=== PATIENT | female | born 1995 | race Caucasian/White ===

== ENCOUNTER → 2019-03-28 | Outpatient (CLI) | payer BC, OTHER ==
[2019-03-28 11:02] LABS: HCG, SERUM QUANTITATIVE < 1.0 MIU/ML
[2019-03-28 11:09] LABS: ESTRADIOL 36.1 PG/ML
[2019-03-28 11:10] LABS: FOLLICLE STIMULATING HORMONE 5.9 mIU/mL
== END ==
LOC: M LAB 10:08
PROVIDERS: ATTEND Obstetrics & Gynecology Reproductive Endocrinology
DX: Z31.41 Encounter for fertility testing (principal)

== ENCOUNTER → 2019-03-29 | Outpatient (CLI) | payer BC, OTHER ==
--- NOTE | 2019-03-29 08:52 | REP ---
TRANSVAGINAL ULTRASOUND FOLLICLE STUDY: Real-time sonographic evaluation of the pelvis was performed utilizing transvaginal technique. The uterus measures 8.9 x 4.1 x 6.1 cm. Endometrial stripe measures 5 mm. No endometrial fluid collection was seen. Right ovary measures 3.4 x 2.0 x 1.7 cm. Multiple subcentimeter follicles are seen in the right ovary. Left ovary measures 3.2 x 2.0 x 1.8 cm. Multiple subcentimeter follicles are seen in the left ovary. No follicles are seen in either ovary that are greater than 1 cm in diameter. Electronically Signed by Mitchel Barraza MD 03/29/2019 09:24 A
== END ==
LOC: M RAD 07:06
PROVIDERS: ATTEND Obstetrics & Gynecology Reproductive Endocrinology
DX: Z31.41 Encounter for fertility testing (principal)

== ENCOUNTER → 2019-05-14 | Outpatient (CLI) | payer BC, OTHER ==
[2019-05-14 11:44] LABS: ESTRADIOL 312.7 PG/ML; PROGESTERONE 0.58 NG/ML
--- NOTE | 2019-05-14 12:31 | REP ---
REASON: Ovarian follicle study. Transvaginal pelvic ultrasound only. The uterus measures 9.4 x 2 x 6.5 cm. The parenchymal echo pattern is within normal limits. The endometrial echo complex measures 3 mm. The right ovary measures 4.2 x 1.8 x 2.7 cm. There are two follicles in the right ovary which measure over 1 cm, one measures 16 x 11.2 mm and the other 14.8 x 13.8 mm. There are multiple follicles seen in the 5-9 mm range. Left ovary measures 4.2 x 1.8 x 3.1 cm. There are two follicles in the left ovary which measure over a 1 centimeter, one measures 13.2 x 12.5 mm and the other 10.4 x 8.3 mm. Additionally, there are multiple follicles seen in the 3-7 mm range. Electronically Signed by Cayetano Rodriguez DO 05/14/2019 02:20 P
== END ==
LOC: M RAD 10:29
PROVIDERS: ATTEND Obstetrics & Gynecology Reproductive Endocrinology
DX: Z31.41 Encounter for fertility testing (principal)

== ENCOUNTER → 2019-05-18 | Outpatient (CLI) | payer BC, OTHER ==
--- NOTE | 2019-05-18 09:29 | REPVR ---
EXAM: US Pelvis, Transvaginal EXAM DATE/TIME: 05/18/2019 6:42 AM CLINICAL HISTORY: 23 years old, female; Condition or disease; Other: Infertility TECHNIQUE: Imaging protocol: Real-time transvaginal pelvic ultrasound with image documentation. Transvaginal imaging was used for better evaluation of the endometrium and adnexa. COMPARISON: Transvaginal NON- US 05/14/2019 10:57 AM FINDINGS: Uterus/cervix: Uterus measures 10.7 x 5 x 8 cm. Endometrial stripe is 1 cm in thickness. Right adnexa: Right ovary measures 4 x 5 x 2.4 cm. 2.2 cm right ovarian cyst is noted. Several additional smaller cysts are also present. Left adnexa: Left ovary measures 3 x 3.6 x 3 cm. There are multiple left ovarian cysts. The largest measures 2 cm in diameter. Free fluid: None. IMPRESSION: Multiple bilateral ovarian cysts or follicles. Electronically signed by: Meir Velasco On 05/18/2019 09:29:15 AM
[2019-05-18 09:35] LABS: ESTRADIOL 1051.3 PG/ML; PROGESTERONE 0.49 NG/ML
== END ==
LOC: M RAD 06:28
PROVIDERS: ATTEND Obstetrics & Gynecology Reproductive Endocrinology
DX: Z31.41 Encounter for fertility testing (principal)

== ENCOUNTER → 2019-05-28 | Outpatient (CLI) | payer BC, OTHER | LOC: M LAB 09:40 | PROVIDERS: ATTEND Obstetrics & Gynecology Reproductive Endocrinology | DX: Z51.81 Encounter for therapeutic drug level monitoring (principal) ==

== ENCOUNTER → 2019-06-05 | Outpatient (CLI) | payer BC, OTHER | LOC: M LAB 09:55 | PROVIDERS: ATTEND Obstetrics & Gynecology Reproductive Endocrinology | DX: Z32.00 Encounter for pregnancy test, result unknown (principal) ==